=== PATIENT | male | born 1960 | race Caucasian/White ===

== ENCOUNTER → 2022-01-22 | Outpatient (CLI) | payer MEDICARE ==
--- NOTE | 2022-01-22 16:25 | KCIC ---
EXAM: CT CHEST WITHOUT CONTRAST (LDCT LUNG CANCER SCREENING). HISTORY: Risk factors for pulmonary malignancy. Cigarette smoking. TECHNIQUE: CT of the chest was performed without intravenous contrast using a low-dose lung screening protocol. Findings analysis is based on ACR Lung-RADS v1.1. *One or more of the following individual ized dose reduction techniques were utilized for this examination: 1. Automated exposure control. 2. Adjustment of the mA and/or kV according to patient size. 3. Use of iterative reconstruction technique. COMPARISON: None. FINDINGS: There is moderate emphysema. There is bronchial wall thickening likely due to the sequela o f bronchitis. There is right apical pleural parenchymal scarring. There is no pneumothorax or pleural effusion. There are filling defects within right middle and lower lobe bronchi likely due to unclear ed secretions. There are scattered nonspecific groundglass opacities within the right middle lobe whi ch are likely postinfectious or postinflammatory. There is no consolidated infiltrate. There is no howard spicious pulmonary nodule. The heart is normal in size. There is coronary artery calcification. There is calcific lesion of the aortic valve. There are prominent mediastinal and hilar lymph nodes. For r eference purposes, there is a precarinal lymph node measuring 1.8 cm. There is no acute finding invol ving the upper abdomen. There are degenerative changes involving the spine. There is no acute or susp icious osseous finding. There is a chronic mild compression of T7. IMPRESSION: 1. No suspicious pulmonary nodule. Lung RADS category 1: Follow-up with a low dose lung cancer screen ing CT in 12 months is recommended. 2. Moderate emphysema with bronchial wall thickening due to the sequela of bronchitis. 3. Small filling defects within right middle and lower lobe bronchi likely due to uncleared secretion s. 4. Scattered faint nonspecific groundglass opacities within the right middle lobe, likely postinfecti ous or postinflammatory. 5. Coronary artery calcification. 6. Prominent mediastinal and hilar lymph nodes, likely physiologic or reactive in etiology. Electronically signed by: Park Mathis MD (01/22/2022 4:23 PM) [facility]
== END ==
LOC: KCIC CT 12:20
PROVIDERS: ATTEND Family Medicine
DX: Z12.2 Encounter for screening for malignant neoplasm of respiratory organs (principal); J43.9 Emphysema, unspecified; I25.10 Atherosclerotic heart disease of native coronary artery without angina pectoris; R91.8 Other nonspecific abnormal finding of lung field; J98.09 Other diseases of bronchus, not elsewhere classified; I89.8 Other specified noninfective disorders of lymphatic vessels and lymph nodes; I35.1 Nonrheumatic aortic (valve) insufficiency; F17.210 Nicotine dependence, cigarettes, uncomplicated; M47.819 Spondylosis without myelopathy or radiculopathy, site unspecified; G95.29 Other cord compression
CPT/HCPCS: 71271